=== PATIENT | male | born 1990 | race Hispanic/Latino ===

== ENCOUNTER 2017-12-15 20:59 | Emergency (ER) | payer OTHER ==
[2017-12-15] MEDS ORDERED: Lidocaine 1% (PF) 30 ML VIAL ONE (21:16)
[2017-12-15] MEDS ORDERED: Bacitracin Zinc 1 Packet ONE (22:23)
== END 2017-12-15 22:30 | disposition home or self-care (01) ==
LOC: ERS 20:59
DX: S61.211A Laceration without foreign body of left index finger without damage to nail, initial encounter (principal); W25.XXXA Contact with sharp glass, initial encounter
CPT/HCPCS: 12002; J2001